=== PATIENT | male | born 1955 | race Caucasian/White ===

== ENCOUNTER 2022-08-04 21:08 | Emergency (ER) | payer MEDICARE ==
[2022-08-04] MEDS ORDERED: LIDOCAINE VISCOUS 2% SOLN 15 ML UDC ONE (21:41)
--- NOTE | 2022-08-04 22:14 | EDPHYS ---
Physician Documentation [facility] Name: Lamont Branham Age: 66 yrs Sex: Male : 1955 Arrival Date: 08/04/2022 Time: 21:11 Bed 12 Private MD: ED Physician Rudi Up HPI: 08/04 21:35 This 66 yrs old Male presents to ER via Ambulatory with complaints of Urinary Problem. cp 21:35 The patient presents with urinary symptoms, retention, unable to void. Onset: The cp symptoms/episode began/occurred today. 21:35 Associated signs and symptoms: Pertinent positives: abdominal pain, Pertinent cp negatives: constipation, diarrhea, dysuria, fever, hematuria, vomiting. Severity of symptoms: in the emergency department the symptoms are unchanged, despite home interventions. Patient reports recent prostate ablation surgery 15 days ago by urologist in [place]. Had f/u with urologist this past and moss catheter was removed. Patient was able to void over past several days until today. Denies fever, currently taking prescribed Levofloxacin. Historical: - Allergies: 21:28 No Known Allergies; ke1 - PMHx: 21:28 Prostate cancer; BPH; ke1 - Immunization history:: Adult Immunizations up to date, Client reports receiving the 2nd dose of the Covid vaccine. - Social history:: Smoking status: Patient denies any tobacco usage or history of. ROS: 21:40 Constitutional: Negative for body aches, chills, fever, poor PO intake. cp 21:40 Eyes: Negative for injury, pain, redness, and discharge. cp 21:40 ENT: Negative for drainage from ear(s), ear pain, sore throat, difficulty swallowing, difficulty handling secretions. 21:40 Cardiovascular: Negative for chest pain, edema, palpitations. 21:40 Respiratory: Negative for cough, shortness of breath, wheezing. 21:40 Abdomen/GI: Positive for abdominal pain, Negative for vomiting, diarrhea, constipation. 21:40 Back: Negative for pain at rest, pain with movement. 21:40 : Positive for difficulty urinating, Negative for hematuria, burning with urination, testicular pain 21:40 Neuro: Negative for altered mental status, dizziness, headache, weakness. 21:40 All other systems are negative. Exam: 21:45 Constitutional: The patient appears in no acute distress, alert, awake, cp non-diaphoretic, non-toxic, well developed, well nourished, uncomfortable. 21:45 Head/Face: Normocephalic, atraumatic. cp 21:45 Cardiovascular: Rate: tachycardic, Edema: is not appreciated, JVD: is not appreciated. 21:45 Respiratory: the patient does not display signs of respiratory distress, Respirations: normal, no use of accessory muscles, no retractions, labored breathing, is not present, Breath sounds: are clear throughout, no decreased breath sounds. 21:45 Abdomen/GI: Inspection: abdomen appears normal, Palpation: soft, in all quadrants, moderate abdominal tenderness, in the suprapubic area, rebound tenderness, is not appreciated, voluntary guarding, is elicited in the suprapubic area. 21:45 Back: CVA tenderness, is absent. 21:45 Neuro: Orientation: to person, place \T\ time. Mentation: is normal, Motor: moves all fours, strength is normal, Gait: is steady. Vital Signs: 21:23 BP 140 / 88; Pulse 109; Resp 21; Temp 98.5; Pulse Ox 100% on R/A; Weight 73.48 kg; rv1 Height 5 ft. 7 in. (170.18 cm); Pain 4/10; 21:32 Weight 73.48 kg; Height 5 ft. 7 in. (170.18 cm); Pain 0/10; ke1 22:35 BP 114 / 92; Pulse 97; Resp 19; Temp 98.3; Pulse Ox 100% on R/A; Pain 0/10; ke1 21:32 Body Mass Index 25.37 (73.48 kg, 170.18 cm) ke1 MDM: 21:21 Patient medically screened. cp 22:00 Differential diagnosis: UTI, urinary retention, prostatitis, urethral stone. cp 22:13 Data reviewed: vital signs, nurses notes. cp 22:13 Test considered but Not performed: CT: CT abdomen/pelvis. Historians other than the cp Patient: Spouse/Significant Other: assists with HPI. Counseling: I had a detailed discussion with the patient and/or guardian regarding: the historical points, exam findings, and any diagnostic results supporting the discharge/admit diagnosis, the need for outpatient follow up, for definitive care, a urologist, to return to the emergency department if symptoms worsen or persist or if there are any questions or concerns that arise at home. Response to treatment: the patient's symptoms have resolved after treatment, and as a result, I will discharge patient. 08/04 21:31 Order name: Moss; Complete Time: 22:05 cp 08/04 22:13 Order name: Vital Signs; Complete Time: 22:35 cp Administered Medications: No medications were administered Disposition Summary: 08/04/22 22:13 Discharge Ordered Location: Home cp Problem: an ongoing problem cp Symptoms: have improved cp Condition: Stable cp Diagnosis - Other retention of urine cp Followup: cp - With: Private Physician - When: 2 - 3 days - Reason: Recheck today's complaints Discharge Instructions: - Discharge Summary Sheet cp - Acute Urinary Retention, Male cp Forms: - Medication Reconciliation Form cp - Thank You Letter cp - Antibiotic Education cp - Prescription Opioid Use cp Addendum: 08/07/2022 11:54 Co-signature as Attending Physician, Rudi Up MD I reviewed the patient's care r t provided by the Advanced Practice Provider and agree with the diagnosis and treatment plan. Signatures: Ashu Yip PA PA cp Ebrottie, Kouassi RN RN ke1 Rudi Up MD MD rt
--- NOTE | 2022-08-04 22:14 | ER ---
Nurse's Notes [facility] Name: Lamont Branham Age: 66 yrs Sex: Male : 1955 Arrival Date: 08/04/2022 Time: 21:11 Bed 12 Private MD: Diagnosis: Other retention of urine Presentation: 08/04 21:26 Chief complaint: Patient states: Laser ablation done 15 days ago, difficulty urinating ke1 today since 1430 , currently on AbB for UTI. Onset of symptoms was August 04, 2022 at 14:30. 21:26 Method Of Arrival: Ambulatory ke1 21:26 Acuity: SAMY 3 ke1 21:31 Coronavirus screen: Vaccine status: Patient reports receiving the 1st dose of the Covid ke1 vaccine. Ebola Screen: No symptoms or risks identified at this time. Risk Assessment: Do you want to hurt yourself or someone else? Patient reports no desire to harm self or others. 21:31 Initial Sepsis Screen: Does the patient meet any 2 criteria? RR > 20 per min. HR > 90 ke1 bpm. Does the patient have a suspected source of infection? Yes: Dysuria/Frequency/Urgency/UTI. Triage Assessment: 21:33 General: Appears uncomfortable, Behavior is cooperative, appropriate for age. Pain: ke1 Denies pain. Historical: - Allergies: 21:28 No Known Allergies; ke1 - PMHx: 21:28 Prostate cancer; BPH; ke1 - Immunization history:: Adult Immunizations up to date, Client reports receiving the 2nd dose of the Covid vaccine. - Social history:: Smoking status: Patient denies any tobacco usage or history of. Screenin:32 [facility] ED Fall Risk Assessment (Adult) History of falling in the last 3 months, ke1 including since admission No falls in past 3 months (0 pts) Confusion or Disorientation No (0 pts) Intoxicated or Sedated No (0 pts) Impaired Gait No (0 pts) Mobility Assist Device Used No (0 pt) Altered Elimination No (0 pt) Score/Fall Risk Level 0 - 2 = Low Risk. Abuse screen: Denies threats or abuse. Nutritional screening: No deficits noted. Tuberculosis screening: No symptoms or risk factors identified. Assessment: 22:36 Reassessment: Patient is alert, oriented x 3, equal unlabored respirations, skin ke1 warm/dry/pink. Patient states feeling better. Patient states symptoms have improved. Vital Signs: 21:23 BP 140 / 88; Pulse 109; Resp 21; Temp 98.5; Pulse Ox 100% on R/A; Weight 73.48 kg; rv1 Height 5 ft. 7 in. (170.18 cm); Pain 4/10; 21:32 Weight 73.48 kg; Height 5 ft. 7 in. (170.18 cm); Pain 0/10; ke1 22:35 BP 114 / 92; Pulse 97; Resp 19; Temp 98.3; Pulse Ox 100% on R/A; Pain 0/10; ke1 21:32 Body Mass Index 25.37 (73.48 kg, 170.18 cm) ke1 ED Course: 21:11 Patient arrived in ED. ja2 21:13 Rudi Up MD is Attending Physician. rt 21:13 Ashu Yip PA is PHCP. dano 21:16 Sheba Moreno RN is Primary Nurse. ke1 21:28 Triage completed. ke1 21:33 Bed in low position. ke1 22:05 Hoffman cath inserted, using sterile technique, 16 Fr., by al, balloon inflated, to ke1 gravity drainage, returned 1600 ml. Patient tolerated well. 22:36 Arm band placed on right wrist. ke1 22:36 No provider procedures requiring assistance completed. Patient did not have IV access ke1 during this emergency room visit. Administered Medications: No medications were administered Medication: 22:36 VIS not applicable for this client. ke1 Outcome: 22:13 Discharge ordered by . cp 22:36 Discharged to home ambulatory. ke1 22:36 Condition: good 22:36 Discharge instructions given to patient. 22:36 Patient left the ED. ke1 Signatures: Ashu Yip PA PA Molly Fairbanks ja2 Sheba Moreno, KYRA RN ke1 Rudi Up MD MD rt Bina Smith rv1
[2022-08-05 01:46] VITALS: BP 114/92; TEMP 98.3; O2SAT 100
== END 2022-08-04 22:36 | disposition home or self-care (01) ==
LOC: ER 21:08
DX: R33.8 Other retention of urine (principal); Z98.890 Other specified postprocedural states; Z85.46 Personal history of malignant neoplasm of prostate
CPT/HCPCS: 51702; 99284